=== PATIENT | male | born 1960 | race Caucasian/White ===

== ENCOUNTER 2023-05-05 12:25 | Outpatient (AMB) | payer BC, SELFPAY ==
--- NOTE | 2023-05-05 12:27 | AM.OFFWIN_ITS ---
Intake Vital Signs 05/05/23 12:38 Weight 187 lb BP 132/80 Blood Pressure Location Rt brachial Position Sitting Pulse 96 Pulse Source Pulse Oximeter Temp 98.8 F Temp Source Temporal Artery Scan Pulse Oximetry (%) 97 Intake Visit Reasons: [employer] ?Infection Knee Intake Note: pt is here for c/o knee infection after knee replacement surgery. the wound has an area with redness and drainage Patient Tobacco Use Status: Never used Tobacco Allergies No Known Allergies [No Known Allergies*] Allergy (Verified 05/05/23 12:28) Do you need a note to return to daycare/school/sports/work: No HPI HPI Comments History of Present Illness Details This is a 62-year-old male who presents to the office today for sick visit. Patient had a right total knee replacement on 04/16/2023. He had some mild redness surrounding his surgical incision about 2 days ago but he followed up with his orthopedic surgeon and they said it was normal. Patient started to developed worsening erythema of the proximal part of his incision at his anterior thigh so he came to the urgent care for further evaluation. Patient denies any erythema or swelling of the actual knee joint. He denies any fevers or chills. He denies any lymphangitic streaking. Patient is otherwise feeling well. [facility] Social History Patient Tobacco Use Status: Never used Tobacco Review of Systems Const All systems reviewed & are unremarkable except as noted in HPI and below Reports no additional complaints Eyes Reports no additional complaints ENT Reports no additional complaints Card Reports no additional complaints Resp Reports no additional complaints GI Reports no additional complaints Reports no additional complaints Musc Reports no additional complaints Skin/Breast Reports system reviewed and no additional complaints, except as documented Neuro Reports no additional complaints Psych Reports no additional complaints Endo Reports no additional complaints Get/Lymph Reports no additional complaints Aller/Immun Reports no additional complaints Physical Exam Vital Signs: Last Vital Signs Temp 98.8 F 05/05/23 12:38 Pulse 96 05/05/23 12:38 BP 132/80 05/05/23 12:38 Pulse Ox 97 05/05/23 12:38 Const General: cooperative, healthy appearing, no acute distress and well developed Orientation/consciousness: patient oriented x3 HEENT Head: Yes normal to inspection Ears: hearing grossly normal bilaterally General nose exam: Normal external nose present Face and sinus: Yes normal facial exam Mouth: Normal oral and palatal mucosa present Eyes General: appearance normal, both eyes and all related structures Pupils: Equal, round and reactive pupils present EOM: EOMs intact bilaterally Resp Effort & Inspection: normal respiratory effort and no respiratory distress Auscultation: clear to auscultation bilaterally Cardio Rate: regular rate Rhythm: regular rhythm Heart sounds: no gallops, no murmurs and no rubs Peripheral pulses: Peripheral pulses 2+ throughout GI Inspection: No distended Palpation (GI): Soft to palpation and nontender Auscultation: normal bowel sounds Skin General skin exam: no rashes or lesions noted Neuro General: patient oriented x3 Cranial nerves: Yes CN's II-XII intact bilaterally and Yes Equal, round and reactive pupils present Gait exam (Neuro): Normal gait present Motor exam (neuro): 5/5 motor strength present throughout Extrem Other: There is an approximately 4 x 4 cm area of erythema surrounding the proximal part of his surgical incision at his anterior thigh without fluctuance or induration. There is no lymphangitic streaking. There is no purulence drainage. There is no erythema or warmth of his actual knee joint. The rest of his incision is clean, dry, and intact without surrounding erythema. General: Yes normal to inspection, Yes full ROM and Yes no clubbing, cyanosis or edema Psych Appearance: grossly normal Mental Status: mental status grossly normal Assessment & Plan Assessment & Plan (1) Cellulitis: Code(s): L03.90 - Cellulitis, unspecified Plan: This is a 62-year-old male who is status post total knee replacement on 04/16/2023 who presented to the walk-in clinic with an area of erythema at the proximal part of his surgical incision. On physical examination, there is a 4 x 4 cm area of erythema surrounding the proximal part of his surgical incision at his anterior thigh without any erythema, swelling, or warmth of his actual knee joint. History and physical is most consistent with cellulitis surrounding his surgical incision; no evidence for hardware infection or osteomyelitis at this time given no erythema/warmth of the actual knee joint and no evidence of wound dehiscence. Patient's vital signs are stable, his physical exam is otherwise benign, and he is overall nontoxic appearing. Patient will be treated with p.o. trimethoprim sulfamethoxazole twice daily times 7 days. He was instructed to clean the area with gentle soap and water, dry the area thoroughly, and cover with bacitracin and a Band-Aid. He was instructed to follow-up here, the emergency room, or with his orthopedic surgeon for persistent/worsening symptoms including but not limited to fever/chills, worsening erythema, lymphangitic streaking, or purulent drainage. Patient verbalizes understanding and he is in agreement with the plan. Coding Level of Care Code New Pt Level 3 (19003) Diagnoses Cellulitis L03.90
[2023-05-05 12:38] VITALS: BP 132/80; PULSE 96; TEMP 37.1; O2SAT 97
== END 2023-05-05 13:04 | disposition home or self-care (01) ==
PROVIDERS: PCP Internal Medicine; Visit Provider Physician Assistant Medical
DX: L03.90 Cellulitis, unspecified (principal)
CPT/HCPCS: 99203